=== PATIENT | female | born 1980 | race Caucasian/White ===

== ENCOUNTER → 2017-08-29 07:20 | Outpatient (CLI) | payer MEDICAID, SELFPAY | PROVIDERS: Family Provider Family Medicine; PCP Family Medicine; Visit Provider Family Medicine | DX: D64.9 Anemia, unspecified (principal) | CPT/HCPCS: 36415; 86900 ==

== ENCOUNTER 2018-02-04 10:34 | Emergency (ER) | payer MEDICAID, SELFPAY ==
[2018-02-04 10:35] VITALS: BP 123/85; PULSE 81; RESP 18; TEMP 36.6; O2SAT 100; BMI 41.1
--- NOTE | 2018-02-04 10:50 | RAD_ITS ---
STUDY: X-RAY - RIGHT SHOULDER REASON FOR EXAM: Female, 37 years old. Pain. No known injury. TECHNIQUE: 4 view(s) of the shoulder. COMPARISON: None. FINDINGS: Normal glenohumeral articulation. Normal acromioclavicular joint. Normal acromion. Normal humeral head and visualized proximal humerus. The soft tissue structures are unremarkable. Normal visualized pulmonary apex. RAD/Shoulder min 2 Views IMPRESSION: Normal x-ray examination of the shoulder. Electronically Signed: Constantine Parson MD at 11:59 EST Tel [phone], Service support ,
--- NOTE | 2018-02-04 11:42 | ED.VISSUMM ---
- ER Visit Summary Date of Service: 02/04/18 Chief Complaint: [Pain in right shoulder] History of Present Illness: The patient is a 37 F [presents to the emergency department complaint of pain in her right shoulder that she has had for about a week and a half. Patient denies any trauma. Patient states that she woke up with the pain and is progressively worsened. 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 Patient denies any pain rating down her arm. She denies weakness in extremities. She denies any neck pain. Patient is right-hand dominant.] Physical Examination: [HEENT-PERRLA, EOMI. Cranial nerves II through XII grossly intact. TMs clear. Mucous membranes moist. No adenopathy. Cardiovascular-regular rate and rhythm without murmur or ectopy Lungs-clear to auscultation, chest wall stable without crepitus or subcu emphysema Abdomen-normoactive bowel sounds, soft, nontender, no rebound or rigidity, no peritoneal signs. Extremities-intact ?4, normal range of motion, normal pulses, atraumatic. Right shoulder-there is no obvious deformity. There is no erythema or warmth noted. Patient has pain with range of motion and has a hard time putting her right hand behind her back. Patient is able to abduct to 90 degrees and is able to resist abduction. She is nervously intact distally with normal station normal cap refill.] Test Results: [X-rays of the right shoulder obtained were normal.] Emergency Department Course and Treatment: [Patient refused a sling and states that she has one at home.] Treatment Plan: [Patient will be given a referral to orthopedics for follow-up and prescription for a few Percocet for severe pain. Patient to continue with the Naprosyn.] Disposition: [Discharged home in stable condition] Impression: [Right shoulder pain-etiology uncertain] This note was generated with Exelonix dictation software. It may contain incorrect words, spelling, and punctuation that were not noted in review of the chart prior to signing ED Disposition - Plan for ED Patient: Chief Complaint: Upper Extremity Injury Referrals: Kelsie Balbuena DO [Primary Care Provider] -
--- NOTE | 2018-02-04 11:46 | ED.DEP ---
ED Disposition - Plan for ED Patient: Chief Complaint: Upper Extremity Injury Instructions: ED Shoulder Pain [facility] Prescriptions: Oxycodone HCl/Acetaminophen [Percocet 5/325] 1 tab PO Q6H PRN PRN 5 Days #20 tab PRN Reason: Pain Referrals: Kelsie Balbuena DO [Primary Care Provider] - Bebo Kaur MD [STAFF PHYSICIAN] - 5-7 Days
[2018-02-04 11:56] VITALS: BP 130/88; PULSE 74; PULSE 77; RESP 18; O2SAT 100
--- OUTSIDE RECORDS SUMMARY | 2018-03-23 14:43 | XMS RPT_ITS ---
:1980 Author Organization [facility] Care Team Providers Name Role Phone Kelsie Balbuena Primary Care Unavailable Marcelino, Remus Attending Unavailable Linda Balbuenaa Attending Unavailable Malys, Kelsie Referring Unavailable Malys, Kelsie Primary Care Unavailable Garcia Tee Attending Unavailable Maleleonora Kelsie Referring Unavailable PROBLEMS PROBLEMS DATE TYPE CONDITION / CODE ATTENDING STATUS SOURCE 02/04/2018 Unknown M25.519 - Pain in [place], Remus Active [place] unspecified Community shoulder / Hospital M25.519(ICD-10) Repository 08/29/2017 Unknown D64.9 - Anemia, Malys, Kelsie Active [place] unspecified / Community D64.9(ICD-10) Hospital Repository PROCEDURES PROCEDURES No Procedure Records FoundRESULTS RESULTS DISCHARGE INSTRUCTION Observed: 02/04/2018 Status: F Source: [place] 11:47 AM [facility] REPOSITORY [facility] Medical Records Department [address] [place] [address] Discharge Instruction 02/04/18 1146 MR#: [id number] Acct: [id number] Name: AMANDA TONY Rep #: [id number] : 1980 37 From: Cristiana Benson DO PCP: Kelsie Balbuena DO Status: REG ER ED Disposition - Plan for ED Patient: Chief Complaint: Upper Extremity Injury Instructions: ED Shoulder Pain [facility] Prescriptions: Oxycodone HCl/Acetaminophen [Percocet 5/325] 1 tab PO Q6H PRN PRN 5 Days #20 tab PRN Reason: Pain Referrals: Kelsie Balbuena DO [Primary Care Provider] - Bebo Tony MD [STAFF PHYSICIAN] - 5-7 Days What to do if you have Problems For any increased pain, shortness of breath, bleeding, nausea or vomiting, chest pain, or any unexpected problems, contact your Primary Care Provider. Call [facility] ([phone]) or report to the closest Emergency Room. Call 911 if necessary. 02/04/18 1147 <Electronically signed by Cristiana Benson DO> Date Cristiana Benson DO Cosigner Signature (If Indicated): Date CC: Kelsie Balbuena DO EMERGENCY DEPARTMENT Observed: 02/04/2018 Status: F Source: [place] SUMMARY 11:44 AM [facility] REPOSITORY [facility] Medical Records Department [address] [place] [address] Emergency Department Summary 02/04/18 1142 MR#: [id number] Acct: [id number] Name: AMANDA TONY Rep #: [id number] : 1980 37 From: Cristiana Benson DO PCP: Kelsie Balbuena DO Status: REG ER - ER Visit Summary Date of Service: 12/12/18 Chief Complaint: [Pain in right shoulder] History of Present Illness: The patient is a 37 F [presents to the emergency department complaint of pain in her right shoulder that she has had for about a week and a half. Patient denies any trauma. Patient states that she woke up with the pain and is progressively worsened. 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 Patient denies any pain rating down her arm. She denies weakness in extremities. She denies any neck pain. Patient is right-hand dominant.] Physical Examination: [HEENT-PERRLA, EOMI. Cranial nerves II through XII grossly intact. TMs clear. Mucous membranes moist. No adenopathy. Cardiovascular-regular rate and rhythm without murmur or ectopy Lungs-clear to auscultation, chest wall stable without crepitus or subcu emphysema Abdomen-normoactive bowel sounds, soft, nontender, no rebound or rigidity, no peritoneal signs. Extremities-intact 4, normal range of motion, normal pulses, atraumatic. Right shoulder-there is no obvious deformity. There is no erythema or warmth noted. Patient has pain with range of motion and has a hard time putting her right hand behind her back. Patient is able to abduct to 90 degrees and is able to resist abduction. She is nervously intact distally with normal station normal cap refill.] Test Results: [X-rays of the right shoulder obtained were normal.] Emergency Department Course and Treatment: [Patient refused a sling and states that she has one at home.] Treatment Plan: [Patient will be given a referral to orthopedics for follow-up and prescription for a few Percocet for severe pain. Patient to continue with the Naprosyn.] Disposition: [Discharged home in stable condition] Impression: [Right shoulder pain-etiology uncertain] This note was generated with Thinglink dictation software. It may contain incorrect words, spelling, and punctuation that were not noted in review of the chart prior to signing ED Disposition - Plan for ED Patient: Chief Complaint: Upper Extremity Injury Referrals: Kelsie Balbuena DO [Primary Care Provider] - What to do if you have Problems For any increased pain, shortness of breath, bleeding, nausea or vomiting, chest pain, or any unexpected problems, contact your Primary Care Provider. Call [facility] ([phone]) or report to the closest Emergency Room. Call 911 if necessary. 02/04/18 1144 <Electronically signed by Cristiana Benson DO> Date Cristiana Benson DO Cosigner Signature (If Indicated): Date CC: Kelsie Balbuena DO SHOULDER MIN 2 VIEWS Observed: 02/04/2018 Status: F Source: [place] 10:50 AM [facility] REPOSITORY [facility] Imaging Services [address] [place] [id number] Shoulder min 2 Views MR#: [id number] Acct: [id number] Name: CHAVOAMANDA Sofia Rep #: [id number] : 1980 F 37 From: Constantine Parson MD PCP: Kelsie Balbuena DO Status: REG ER Study: Shoulder min 2 Views Date of Exam: 02/04/18 Exam# [id number] Ordering Dr: Cristiana Benson DO STUDY: X-RAY - RIGHT SHOULDER REASON FOR EXAM: Female, 37 years old. Pain. No known injury. TECHNIQUE: 4 view(s) of the shoulder. COMPARISON: None. FINDINGS: Normal glenohumeral articulation. Normal acromioclavicular joint. Normal acromion. Normal humeral head and visualized proximal humerus. The soft tissue structures are unremarkable. Normal visualized pulmonary apex. RAD/Shoulder min 2 Views IMPRESSION: Normal x-ray examination of the shoulder. Electronically Signed: Constantine Parson MD at 11:59 EST Tel [phone], Service support , CC: Kelsie Balbuena DO; Cristiana Benson DO Thread Laster: Signed ABO RH BLOOD TYPE, Collected: 08/29/2017 Status: F Source: [place] PATIENT 7:26 AM [facility] REPOSITORY TYPE CODE TESTS RESULT OUT OF RANGE REFERENCE UNITS LAB B10.0800 O Normal BLOOD POSITIVE TYPE GEL Performed By: #### B10.0010 #### [facility] [address] [place], [address] ALLERGIES ALLERGIES DATE TYPE / CODE NAME / CODE REACTION SEVERITY SOURCE 02/04/2018 Drug Penicillins/ Unknown Unknown [facility] Allergy/4160 [id number]( Hospital 40434(SNOMED XNORM) Repository CT) 02/04/2018 Drug morphine/F00 Itching Unknown [facility] Allergy/4160 [id number]([facility] 43063(SNOMED RM) Repository CT) ENCOUNTERS ENCOUNTERS ADMIT/DISCHARGE ACCOUNT ADMITTING ENCOUNTER LOCATION SOURCE NUMBER CLASS 02/04/2018/ [id number] Emergency [place] 8 2 [facility] ing:ED Repository 01/07/2018/ [id number] Ambulatory BMSBuilding:B [place] [address] [facility] Repository 08/29/2017 [id number] Ambulatory [place] 6 [facility] ing:LAB Repository PAYERS PAYERS ENCOUNTER GUARANTOR PAYER SUBSCRIBER SOURCE 02/04/2018 CRY[place]AL M Primary CRYSTAL M [place] [id number] Insurance:CAMACHO SANCHEZB: [address] MORALES Number: [id number] [address]Tnp: [id number] Repository Date:2018-02-04 O () [address]ATTN: [place] [address]UU: 02/04/2018 Secondary NOT GIVENUNK [place] Insurance:SELF PAY [facility] Number: Effective Repository Date:2018-02-04 01/07/2018 CARROLL Maradiaga Primary NOT GIVENUNK [place] [id number] Insurance:SELF PAY [facility] [address]Ukf: Number: Effective Repository Date:2018-01-07 () 08/29/2017 [place] [address] Insurance:CARESOMOISES SANCHEZB: [facility] yoli Zhang Number: [id number] [address]Ysm: [id number] Repository Date:2017-08-29P O () [address]ATTN: [place] [address]DE: 08/29/2017 Secondary NOT GIVENQUEENIE Ojeda Insurance:SELF PAY [facility] Number: Effective Repository Date:2017-08-29
== END 2018-02-04 12:05 | disposition home or self-care (01) ==
LOC: ED 11:27
PROVIDERS: Emergency Provider Emergency Medicine; Family Provider Family Medicine; PCP Family Medicine
DX: M25.511 Pain in right shoulder (principal); E11.9 Type 2 diabetes mellitus without complications; Z79.84 Long term (current) use of oral hypoglycemic drugs
CPT/HCPCS: 73030; 99282

== ENCOUNTER 2018-04-29 08:23 | Emergency (ER) | payer SELFPAY ==
[2018-04-29 08:23] VITALS: BP 152/98; PULSE 76; RESP 18; TEMP 36.6; O2SAT 100; BMI 35.6
--- NOTE | 2018-04-29 08:38 | ED.VISSUMM ---
- ER Visit Summary Date of Service: 04/29/18 Chief Complaint: Foot injury History of Present Illness: The patient is a 37 F presents to the emergency department burn on her foot. Patient was in her normal state of health. States last night, she was making [employer]. She states that the can exploded and fell onto the ground. She stepped on it with her bare feet on the ball of her left foot. She states that overnight, the pain got worse. She noticed a blister. Her tetanus is up-to-date. The patient is otherwise healthy. Physical Examination: Exam is relatively unremarkable. Patient is a 1 cm ovoid blister on the ball of the foot. There is no streaking. There is no skin sloughing. It is not circumferential. She also has a very small blister that is just lateral to that area. Pulses are normal. Compartments are soft. Test Results: [] Emergency Department Course and Treatment: Patient has a partial-thickness burn. It is less than 1% total body surface area. Not circumferential. Bacitracin dressing was applied. Patient will be placed in a postoperative shoe. She was counseled on concerning symptoms and reasons to return. She will be given 2 days of analgesics for acute pain control. She will be discharged home. Treatment Plan: [] Disposition: Discharge Impression: 1. Partial thickness burn left plantar foot less than 1% body surface area This note was generated with StraighterLine dictation software. It may contain incorrect words, spelling, and punctuation that were not noted in review of the chart prior to signing ED Disposition - Plan for ED Patient: Instructions: ED Burn Thermal D 2nd Dressing Prescriptions: Hydrocodone Bitart/Apap 5-325 [[place] 5MG-325MG] 1 tab PO Q6H PRN PRN 3 Days #10 tab PRN Reason: Pain Referrals: Kelsie Balbunea DO [Primary Care Provider] - 2 Days for wound check
[2018-04-29] MEDS: HYDROcodone Bitartrate/Apap 5/325 Tablet PO (09:02)
== END 2018-04-29 09:13 | disposition home or self-care (01) ==
LOC: ED 08:58
PROVIDERS: Emergency Provider Emergency Medicine; Family Provider Family Medicine; PCP Family Medicine
DX: T25.222A Burn of second degree of left foot, initial encounter (principal); T31.0 Burns involving less than 10% of body surface; X19.XXXA Contact with other heat and hot substances, initial encounter; Y93.89 Activity, other specified; Y92.9 Unspecified place or not applicable; E11.9 Type 2 diabetes mellitus without complications; Z79.84 Long term (current) use of oral hypoglycemic drugs
CPT/HCPCS: 99282

== ENCOUNTER 2018-07-06 16:48 | Emergency (ER) | payer OTHER, SELFPAY ==
[2018-07-06 17:07] VITALS: BP 145/80; PULSE 93; RESP 18; TEMP 37.1; O2SAT 99; BMI 29.0
--- NOTE | 2018-07-06 17:36 | RAD_ITS ---
STUDY: X-RAY - LEFT HAND REASON FOR EXAM: Female, 37 years old. Pain TECHNIQUE: 3 view(s) of the hand. COMPARISON: None. FINDINGS: There is no evidence of fracture or dislocation. There are no significant degenerative changes. There are no radiodense foreign bodies. RAD/Hand Min 3 Views IMPRESSION: No fracture or dislocation. Electronically Signed: Garcia Keller, at 18:00 EDT Tel , Service support ,
--- NOTE | 2018-07-06 18:24 | ED.VISSUMM ---
- ER Visit Summary Date of Service: 07/06/18 Chief Complaint: Left hand injury History of Present Illness: The patient is a 37 F presenting with left hand injury. This occurred at work. She states the weight of the garage door at her work pulled a chain which then wrapped around her left hand and pulled up on her hand. She is right-handed. She tried ibuprofen prior to arrival. She has pain in the left hand. Denies other injuries. Physical Examination: Vitals are stable. Patient is afebrile. Alert no acute distress. HEENT exam is unremarkable. Lungs are clear and equal bilaterally. Heart is regular rate and rhythm. Extremities tenderness third and fourth metacarpal. No deformity. Normal cap refill. Painful range of motion. Normal sensation. Skin is warm and dry. No focal neurologic deficit. Remainder of exam is unremarkable. Emergency Department Course and Treatment: Left hand x-ray shows no acute process. Patient is advised to ice and elevate. She is given prescription for naproxen. She is advised to follow-up with corporate care. Advised return to ED if worsening complaints. Disposition: Discharge home Impression: Left hand contusion This note was generated with [employer] dictation software. It may contain incorrect words, spelling, and punctuation that were not noted in review of the chart prior to signing ED Disposition - Plan for ED Patient: Referrals: Kelsie Balbuena DO [Primary Care Provider] -
--- NOTE | 2018-07-06 18:28 | DCINST.ED_ITS ---
ED Disposition - Plan for ED Patient: Instructions: ED Contusion Hand Prescriptions: Naproxen [Naprosyn] 500 mg PO BID PRN #20 tablet Referrals: Kelsie Balbuena DO [Primary Care Provider] - [facility]GROUP OF PHYSICIANS] -
== END 2018-07-06 18:52 | disposition home or self-care (01) ==
LOC: ED 18:36
PROVIDERS: Emergency Provider Emergency Medicine; Family Provider Family Medicine; PCP Family Medicine
DX: S60.222A Contusion of left hand, initial encounter (principal); W22.8XXA Striking against or struck by other objects, initial encounter; Y93.89 Activity, other specified; Y92.9 Unspecified place or not applicable; Y99.0 Civilian activity done for income or pay; E11.9 Type 2 diabetes mellitus without complications; Z79.84 Long term (current) use of oral hypoglycemic drugs
CPT/HCPCS: 73130; 99282

== ENCOUNTER 2021-12-03 05:15 | Emergency (ER) | payer MEDICAID, SELFPAY ==
[2021-12-03 05:16] VITALS: BP 155/90; PULSE 82; RESP 18; TEMP 36.5; O2SAT 97; BMI 44.7
--- NOTE | 2021-12-03 05:48 | EX.ED.DYSGE1 ---
HPI History of Present Illness Chief Complaint: Itching Informant: patient Narrative Narrative: Patient is a 41-year-old female with history of yvc-bezivpi-wvrarwait diabetes mellitus presenting with itching to her bilateral hands as well as her right pentecostalism area. Patient states is going on for the past week. 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 They do not have gloves that fit her hands so she tends to work without gloves. She is never had reaction or rash like this before. She notes that she did have a nonitchy rash on her left chest a couple weeks ago that was treated at pulmonary and with mometasone and Prevacid. She was told it was a contact dermatitis. That has since resolved. She states she was up all night sleeping. She is tried pclx-hpy-cugigof treatments such as hydrocortisone, mometasone and Benadryl but nothing really seems to help. She does have Benadryl just makes her sleepy. She denies any chest pain, shortness of breath or difficulty breathing. Denies any GI upset. No other complaints at this time. PFSH PFSH Home Medications norethindrone (contraceptive) 0.35 mg tablet (Lyza) 0.35 mg PO DAILY 07/06/18 [History Last Taken Unknown] cetirizine 10 mg tablet 10 mg PO DAILY 12/03/21 [History Last Taken Unknown] glipizide 5 mg tablet, extended release 24 hr 5 mg PO DAILY 12/03/21 [History Last Taken Unknown] methylprednisolone 4 mg tablets in a dose pack (Medrol (Yfn)) 4 mg PO DAILY #21 tabs 12/03/21 [Rx Last Taken Unknown] Allergy/AdvReac Type Severity Reaction Status Date / Time Penicillins [PCN] Allergy Unknown Verified 07/06/18 16:48 morphine AdvReac Itching Verified 07/06/18 16:48 Social History Smoking Status: Never smoker ROS ROS ED Constitutional Constitutional ED: Denies chills or fever(s) Eyes Eyes: Denies change in vision ENT ENT ED: Denies rhinorrhea or sore throat Cardiovascular Cardiovascular: Denies chest pain or palpitations Respiratory/Chest Respiratory/Chest: Denies cough or dyspnea Gastrointestinal Gastrointestinal: Denies abdominal pain Musculoskeletal Musculoskeletal: Denies arthralgias or myalgias Integumentary Reports rash Neurologic Neurologic: Denies headache(s) or weakness Psychiatric Psychiatric: Denies anxiety EXAM Physical Exam Const Vital Signs: 12/03/21 05:16 12/03/21 05:54 Temperature 97.7 F L Temperature Source Oral Pulse Rate 82 Respiratory Rate 18 Blood Pressure 155/90 H 122/81 H Blood Pressure Mean 111 Pulse Ox 97 Oxygen Delivery Method Room Air Positive well nourished and well developed General Appearance ED: well developed and NAD HEENT Reports moist mucous membranes HEENT Narrative: Normal oropharynx Eyes PERRL and EOMs intact bilaterally Neck supple and no JVD Neck Narrative: No stridor Chest Wall inspection of chest normal Resp normal respiratory effort and clear to auscultation bilaterally Auscultation: Negative for wheezes Cardio regular rate, regular rhythm and no murmurs GI non-tender and non-distended Auscultation: normoactive bowel sounds Extremity normal to inspection General Extremety ED: Negative for edema or tenderness General Extremity: Negative for edema Neuro oriented x3 Sensorium / Orientation: alert Motor Exam: Negative for general weakness Psych mental status grossly normal Skin Skin Narrative: Patient has scattered tiny papules in the dorsal aspect of the proximal phalanges as well as the wrist with no surrounding erythema or fluctuance. No drainage appreciated. There is a small area of erythema of the right pentecostalism that is nonspecific. Patient does have some slight red discoloration over the nose and cheeks which she states is normal for her. MDM MDM MDM Narrative Medical decision making narrative: Patient evaluated for pruritic rash to her hands and wrist. Most consistent with dyshidrotic eczema. Does not appear infectious. Discussed the risk and benefits of steroid therapy which I think will help her symptoms but will increase her blood sugar. Patient states overall diabetes well controlled and would like to trial a course of steroid especially as topical steroids if not been helping. Is given a work note per her request. Given that she is concerned that environmental exposure at work is contributing to this I did safety counselor that she really should be wearing gloves while at work to help limit contact. In addition she does have dry skin on her hands which is likely exacerbating her symptoms and is encouraged to use emollient lotion to help moisturize her hands. Counseled on return precautions and encouraged to follow-up with primary care doctor. Discharged home in stable condition. Discharge Plan Triage Chief Complaint: Itching Other Complaint: Allergic Reaction ED Provider: Viji Kothari Dx/Rx/DC Orders Clinical Impression: Dermatitis, dyshidrotic, Pruritus of both hands Instructions: ED Atopic Dermatitis (Adult) Prescriptions: New methylprednisolone [Medrol (Yfn)] 4 mg tablets,dose pack 4 mg PO DAILY Qty: 21 0RF No Action norethindrone (contraceptive) [Lyza] 0.35 MG tablet 0.35 mg PO DAILY cetirizine 10 mg tablet 10 mg PO DAILY Label Comments: TAKE ONE TABLET BY MOUTH DAILY glipizide 5 mg tablet extended release 24hr 5 mg PO DAILY Label Comments: TAKE 1 TABLET BY MOUTH ONCE DAILY Stand Alone Forms: ED Work / School Excuse Primary Care Provider: Ivette Daugherty Referrals: Ivette Daugherty PA-C [Primary Care Provider] - Activity Restrictions/Additional Instructions: Take steroids as prescribed. Keep an eye on your blood sugars and follow close with your primary care doctor if they get too high. You can continue to use uyvu-xjl-ljvobhp ointment such as hydrocortisone cream as well to help with the itching and take Benadryl help you sleep at night. Use and oily/emollients lotion to help keep your hands moist. Disposition Disposition: Home, Self Care Discharge Date/Time: 12/03/21 05:59
[2021-12-03 05:54] VITALS: BP 122/81
[2021-12-03] MEDS: predniSONE 20 MG Tablet 40 MG PO (05:54)
== END 2021-12-03 05:59 | disposition home or self-care (01) ==
PROVIDERS: Emergency Provider Emergency Medicine; PCP Family Medicine; Visit Provider Emergency Medicine
DX: L30.1 Dyshidrosis [pompholyx] (principal); E11.9 Type 2 diabetes mellitus without complications; Z79.84 Long term (current) use of oral hypoglycemic drugs
CPT/HCPCS: 99283